=== PATIENT | male | born 1950 | race Caucasian/White ===

== ENCOUNTER → 2017-01-11 | Outpatient (CLI) | payer MEDICARE, BC ==
[2016-06-09 10:53] VITALS: BP 110/68
[~2017-01-11] MED LIST: ADULT LOW DOSE81 MG PO; AMARYL PO; CLOPIDOGREL PO; GLUCOPHAGE PO; LIPITOR80 MG PO; MASON NATURAL L20 MG PO; QUINAPRIL HCL10 MG PO
== END ==
LOC: RAD 10:13
DX: M25.552 Pain in left hip (principal); M16.0 Bilateral primary osteoarthritis of hip

== ENCOUNTER → 2018-03-07 | Outpatient (CLI) | payer MEDICARE, BC ==
[2017-06-10 11:34] VITALS: BP 132/82
[2018-03-07 16:12] LABS: EOS # 0.1 (0.04-0.40); EOS % 0.8 % (0.0-4.0); HEMATOCRIT 51.7 % (42.0-52.0); HEMOGLOBIN 16.8 g/dL (13.5-18.0); MEAN CELL VOLUME 87 fl (78-100); MEAN CORPUSCULAR HEMOGLOBIN 28 pg (27-31); MEAN CORPUSCULAR HGB CONC 33 g/dL (33-37); MONO # 1.1 (0.20-0.80); PLATELET COUNT 256 K/mm3 (130-400); RED BLOOD COUNT 5.95 M/mm3 (4.20-5.60); RED CELL DISTRIBUTION WIDTH 14.6 % (11.5-14.5); WHITE BLOOD COUNT 13.3 K/mm3 (4.8-10.8)
[2018-03-07 16:18] LABS: MEAN PLATELET VOLUME 12.1 fl (7.4-10.4); NEU # 9.9 (1.40-6.50)
[2018-03-07 16:33] LABS: ALBUMIN 4.2 g/dL (3.5-5.0); BUN/CREATININE RATIO 17.9 (6.0-26.0); CALCIUM 9.5 mg/dL (8.4-10.2); POTASSIUM 4.7 mmol/L (3.6-5.0); TOTAL PROTEIN 7.1 g/dL (6.3-8.2)
== END ==
LOC: LAB 15:21
PROVIDERS: Internal Medicine
DX: I25.10 Atherosclerotic heart disease of native coronary artery without angina pectoris (principal); E11.9 Type 2 diabetes mellitus without complications; I10 Essential (primary) hypertension

== ENCOUNTER → 2019-06-15 | Outpatient (CLI) | payer MEDICARE, BC ==
[2017-06-10 11:34] VITALS: BP 132/82
[2019-06-15 10:14] LABS: EOS # 0.1 (0.04-0.40); EOS % 0.6 % (0.0-4.0); HEMATOCRIT 50.5 % (42.0-52.0); LYMPH# 1.8 (1.50-4.00); MEAN CELL VOLUME 88 fl (78-100); MEAN CORPUSCULAR HEMOGLOBIN 28 pg (27-31); MEAN CORPUSCULAR HGB CONC 32 g/dL (33-37); MEAN PLATELET VOLUME 11.2 fl (7.4-10.4); NEU # 8.1 (1.40-6.50); PLATELET COUNT 295 K/mm3 (130-400); RED BLOOD COUNT 5.72 M/mm3 (4.20-5.60); RED CELL DISTRIBUTION WIDTH 14.5 % (11.5-14.5); WHITE BLOOD COUNT 11.1 K/mm3 (4.8-10.8)
[2019-06-15 10:21] LABS: ALBUMIN 4.1 g/dL (3.4-4.8); POTASSIUM 4.8 mmol/L (3.5-5.1)
[2019-06-15 10:22] LABS: CALCIUM 9.7 mg/dL (8.3-10.5)
[2019-06-15 10:23] LABS: TOTAL PROTEIN 7.3 g/dL (6.2-8.1)
[2019-06-15 10:25] LABS: TOTAL BILIRUBIN 0.7 mg/dL (0.2-1.2)
[2019-06-15 10:27] LABS: URINE APPEARANCE CLEAR; URINE BILIRUBIN NEGATIVE (NEGATIVE); URINE BLOOD NEGATIVE (NEGATIVE); URINE COLOR YELLOW; URINE GLUCOSE NEGATIVE (NEGATIVE); URINE KETONE NEGATIVE (NEGATIVE); URINE LEUKOCYTE ESTERASE NEGATIVE (NEGATIVE); URINE MUCUS PRESENT (NOT PRESENT); URINE NITRATE NEGATIVE (NEGATIVE); URINE PROTEIN(semi-quant) NEGATIVE (NEGATIVE); URINE UROBILINOGEN NORMAL (NORMAL); URINE WBC 0-1 /hpf (0-3)
[2019-06-15 10:30] LABS: MAGNESIUM 2.05 mg/dL (1.60-2.60)
[2019-06-15 11:18] LABS: ERYTHROCYTE SEDIMENTATION RATE 2 mm/hr (0-20)
== END ==
LOC: LAB 10:02
PROVIDERS: Internal Medicine
DX: Z12.5 Encounter for screening for malignant neoplasm of prostate (principal); Z12.11 Encounter for screening for malignant neoplasm of colon; E11.9 Type 2 diabetes mellitus without complications; I25.10 Atherosclerotic heart disease of native coronary artery without angina pectoris; N52.03 Combined arterial insufficiency and corporo-venous occlusive erectile dysfunction

== ENCOUNTER → 2020-06-18 | Outpatient (CLI) | payer MEDICARE, BC ==
[2017-06-10 11:34] VITALS: BP 132/82
[2020-06-18 09:14] LABS: ALBUMIN 4.3 g/dL (3.4-4.8)
[2020-06-18 09:15] LABS: CALCIUM 9.6 mg/dL (8.3-10.5)
[2020-06-18 09:17] LABS: TOTAL PROTEIN 7.3 g/dL (6.2-8.1)
[2020-06-18 09:18] LABS: TOTAL BILIRUBIN 1.1 mg/dL (0.2-1.2)
[2020-06-18 09:20] LABS: URINE APPEARANCE CLEAR; URINE BILIRUBIN NEGATIVE (NEGATIVE); URINE BLOOD NEGATIVE (NEGATIVE); URINE COLOR YELLOW; URINE GLUCOSE NEGATIVE (NEGATIVE); URINE KETONE NEGATIVE (NEGATIVE); URINE LEUKOCYTE ESTERASE NEGATIVE (NEGATIVE); URINE MUCUS PRESENT (NOT PRESENT); URINE NITRATE NEGATIVE (NEGATIVE); URINE PROTEIN(semi-quant) TRACE mg/dL (NEGATIVE); URINE UROBILINOGEN NORMAL (NORMAL)
[2020-06-18 09:23] LABS: MAGNESIUM 1.91 mg/dL (1.60-2.60)
[2020-06-18 10:45] LABS: EOS # 0.1 (0.04-0.40); EOS % 0.5 % (0.0-4.0); HEMATOCRIT 51.6 % (42.0-52.0); HEMOGLOBIN 16.4 g/dL (13.5-18.0); LYMPH# 1.5 (1.50-4.00); MEAN CELL VOLUME 88 fl (78-100); MEAN CORPUSCULAR HEMOGLOBIN 28 pg (27-31); MEAN CORPUSCULAR HGB CONC 32 g/dL (33-37); MEAN PLATELET VOLUME 11.8 fl (7.4-10.4); PLATELET COUNT 282 K/mm3 (130-400); RED BLOOD COUNT 5.85 M/mm3 (4.20-5.60); RED CELL DISTRIBUTION WIDTH 14.9 % (11.5-14.5); WHITE BLOOD COUNT 11.8 K/mm3 (4.8-10.8)
[2020-06-18 11:01] LABS: ERYTHROCYTE SEDIMENTATION RATE 12 mm/hr (0-20); NEU # 9.1 (1.40-6.50)
== END ==
LOC: LAB 08:49
PROVIDERS: Internal Medicine
DX: Z12.11 Encounter for screening for malignant neoplasm of colon (principal); Z12.5 Encounter for screening for malignant neoplasm of prostate; N52.03 Combined arterial insufficiency and corporo-venous occlusive erectile dysfunction; E11.9 Type 2 diabetes mellitus without complications; I10 Essential (primary) hypertension; I25.10 Atherosclerotic heart disease of native coronary artery without angina pectoris; C20 Malignant neoplasm of rectum